=== PATIENT | female | born 1955 | race African-American/Black ===

== ENCOUNTER 2017-06-22 00:05 | Emergency (ER) | payer MEDICARE, BC, OTHER ==
--- NOTE | 2017-06-22 00:27 | ER Document Report ---
ED General <AMY JONES - Last Filed: 06/22/17 14:05> - General TRAVEL OUTSIDE OF THE [place] IN LAST 30 DAYS: No <VINCENT RILEY - Last Filed: 06/29/17 04:11> - General Chief Complaint: Bloody Stools Stated Complaint: FALL Time Seen by Provider: 06/22/17 00:12 Notes: Patient is a 62-year-old female with past medical history of a recent CVA with residual left-sided deficits, hypertension, hyperlipidemia, obesity, a recent right knee replacement who presents after having blood in her stool. The patient reports that she had been constipated secondary to taking pain medications and when she had a bowel movement tonight she had a large amount of blood with the bowel movement. Apparently the entire toilet bowl was full of blood. She denies any history of similar events in the past. She notes she is continued to have some bleeding from her rectum since that time. She is currently taking rivaroxaban. She has not spoken to her primary doctor regarding today's concerns. She denies any focal abdominal pain, syncope, chest pain or shortness of breath. Nothing improves or worsens her symptoms. She denies any hematemesis or melena. (VINCENT RILEY) - Related Data Allergies/Adverse Reactions: Penicillins Allergy (Intermediate, Verified 10/13/15 12:26) Past Medical History - General Information source: Patient - Social History Smoking Status: Never Smoker Frequency of alcohol use: None Drug Abuse: None Lives with: Spouse/Significant other Family History: Reviewed & Not Pertinent - Past Medical History Cardiac Medical History: Reports: Hx Hypertension Denies: Hx Coronary Artery Disease, Hx Heart Attack Pulmonary Medical History: Denies: Hx Asthma, Hx Bronchitis, Hx COPD, Hx Pneumonia Neurological Medical History: Denies: Hx Cerebrovascular Accident, Hx Seizures Musculoskeltal Medical History: Reports Hx Arthritis Past Surgical History: Reports: Hx Breast Surgery - breast reduction, Hx Cholecystectomy, Hx Hysterectomy, Hx Orthopedic Surgery - back, right knee, Hx Tonsillectomy. Denies: Hx Pacemaker - Immunizations Hx Diphtheria, Pertussis, Tetanus Vaccination: No Hx Pneumococcal Vaccination: 07/03/09 <VINCENT RILEY - Last Filed: 06/29/17 04:11> Review of Systems <AMY JONES - Last Filed: 06/22/17 14:05> <VINCENT RILEY - Last Filed: 06/29/17 04:11> - Review of Systems Notes: Constitutional: Negative for fever. HENT: Negative for sore throat. Eyes: Negative for visual changes. Cardiovascular: Negative for chest pain. Respiratory: Negative for shortness of breath. Gastrointestinal: Positive for hematochezia Genitourinary: Negative for dysuria. Musculoskeletal: Negative for back pain. Skin: Negative for rash. Neurological: Negative for headaches, weakness or numbness. 10 point ROS negative except as marked above and in HPI. (VINCENT RILEY) Physical Exam <AMY JONES - Last Filed: 06/22/17 14:05> - Vital signs Interpretation: Normal <VINCENT RILEY - Last Filed: 06/29/17 04:11> - Vital signs Vitals: BP 122/61 06/22/17 00:21 Notes: PHYSICAL EXAMINATION: GENERAL: Well-appearing, well-nourished and in no acute distress. HEAD: Atraumatic, normocephalic. EYES: Pupils equal round and reactive to light, extraocular movements intact, sclera anicteric, conjunctiva are normal. ENT: nares patent, oropharynx clear without exudates. Moist mucous membranes. NECK: Normal range of motion, supple without lymphadenopathy LUNGS: Breath sounds clear to auscultation bilaterally and equal. No wheezes rales or rhonchi. HEART: Regular rate and rhythm without murmurs ABDOMEN: Soft, nontender, normoactive bowel sounds. No guarding, no rebound. No masses appreciated. Rectal exam: There is a moderate to large quantity of bright red blood. No stool. No evidence of hemorrhoids on external inspection or on palpation on digital rectal examination. EXTREMITIES: Normal range of motion, no pitting or edema. No cyanosis. NEUROLOGICAL: No focal neurological deficits. Moves all extremities spontaneously and on command. PSYCH: Normal mood, normal affect. SKIN: Warm, Dry, normal turgor, no rashes or lesions noted. (VINCENT RILEY) Course - Laboratory Result Diagrams: 06/22/17 09:49 06/22/17 00:40 <AMY JONES - Last Filed: 06/22/17 14:05> - Laboratory Result Diagrams: 06/22/17 17:02 06/22/17 00:40 <VINCENT RILEY - Last Filed: 06/29/17 04:11> - Re-evaluation Re-evalutation: 06/22/17 14:06 Patient coming in for evaluation of GI bleed. Patient repeat CBC that showed lowering of her hemoglobin from 12 to approximately 9. Patient's vital signs otherwise has remained stable. We are performed earlier this morning by [facility] more likely patient would not have a bed Are in the next 24 hours for the patient. This patient is decrease in hemoglobin concerned for worsening GI bleed I did reach out to [facility] which is also full however did place the patient on the list and I did contact [facility] who did have a spot for the patient at [facility]. Patient did receive a bed assignment at [place] And also a bed assignment at [facility] at the same time. We did discuss with the patient patient is requesting to go to [facility]. I did call and cancel All the transfers from [facility] and [facility] (AMY JONES) 06/22/17 00:23 Patient presents with bright red blood per rectum after having a bowel movement just prior to to arrival. She is anticoagulated on rivaroxaban. She is hemodynamically stable. Rectal examination does show bright red blood in the rectum that covered the entirety my finger. Although the patient's bright red blood in the rectum could be secondary to a firm bowel movement in the setting of taking narcotic pain medications for recent right knee replacement, there is no way to know this for certain and the quantity of blood on digital rectal examination is unusually pronounced for the etiology. Will obtain basic labs and request transfer for a GI consultation as we do not have GI coverage 06/22/17 03:20 I have contacted the lab and have been able to receive the hemoglobin result which is 12.1 hematocrit 37. Patient remains hemodynamically within normal limits without significant tachycardia or hypotension. She continues to have a small amount of bright red bleeding from the rectum but no large volume bloody bowel movements. I have spoken to Dr. Foy at [facility] who has accepted the patient. 06/22/17 03:46 The patient has a temperature of 100.2 which remains below a true fever but did cause a reassessment of additional possible symptoms. Patient denies any localizing infectious symptoms although reassessment of her right knee where she had the arthroplasty shows signs worrisome for a possible cellulitis. Will obtain blood cultures and will initiate IV ceftriaxone as this appears to be an overlying cellulitis. (VINCENT RILEY) - Vital Signs Vital signs: Temp Pulse Resp BP Pulse Ox 100.2 F 19 96/56 L 98 06/22/17 09:19 06/22/17 18:02 06/22/17 18:02 06/22/17 18:02 - Laboratory Laboratory results interpreted by me: 06/22/17 06/22/17 06/22/17 00:40 01:30 09:49 Hgb 9.6 L D Manual Hct 29.0 L PT 28.0 H APTT 45.9 H Sodium 147.3 H Glucose 164 H 06/22/17 17:02 Hgb 10.3 L Manual Hct 30.0 L PT APTT Sodium Glucose Discharge <AMY JONES - Last Filed: 06/22/17 14:05> <VINCENT RILEY - Last Filed: 06/29/17 04:11> - Discharge Clinical Impression: Lower GI bleed, Acute blood loss anemia Condition: Fair Disposition: [facility]
[2017-06-22 01:08] LABS: ALANINE AMINOTRANSFERASE 32 U/L (9-52); ALBUMIN 4.3 g/dL (3.5-5.0); ALKALINE PHOSPHATASE 97 U/L (38-126); ANION GAP 14 (5-19); ASPARTATE AMINO TRANSFERASE 28 U/L (14-36); BILIRUBIN,DIRECT 0.2 mg/dL (0.0-0.4); BILIRUBIN,TOTAL 0.4 mg/dL (0.2-1.3); BLOOD UREA NITROGEN 10 mg/dL (7-20); CALCIUM 9.7 mg/dL (8.4-10.2); CARBON DIOXIDE 26 mmol/L (22-30); CHLORIDE 107 mmol/L (98-107); GLUCOSE 164 mg/dL (75-110); POTASSIUM 3.8 mmol/L (3.6-5.0); SODIUM 147.3 mmol/L (137-145); TOTAL PROTEIN 7.9 g/dL (6.3-8.2)
[2017-06-22 01:54] LABS: INTERNATIONAL RATION (INR) 2.47
[2017-06-22 01:55] LABS: PARTIAL THROMBOPLASTIN TIME 45.9 SEC (23.5-35.8)
[2017-06-22 03:05] LABS: HEMOGLOBIN 12.1 g/dL (12.0-15.5)
[2017-06-22] MEDS ORDERED: CEFTRIAXONE 1 GM/D5W RTU 1 GM/50 ML RTUPB IV ONE (03:46)
[2017-06-22] MEDS ORDERED: NORMAL SALINE 1000 ML 1,000 ML IV ONE (09:39)
[2017-06-22 10:33] LABS: PLATELET COUNT 213 10^3/uL (150-450); WHITE BLOOD COUNT 5.3 10^3/uL (4.0-10.5)
[2017-06-22 10:55] LABS: HEMOGLOBIN 9.6 g/dL (12.0-15.5)
[2017-06-22] MEDS ORDERED: PANTOPRAZOLE SODIUM 40 MG VIAL IV ONE (11:18)
[2017-06-22] MEDS ORDERED: PANTOPRAZOLE SODIUM 40 MG VIAL IV SCH (18:00)
[2017-06-22 18:07] LABS: HEMOGLOBIN 10.3 g/dL (12.0-15.5)
[2017-06-22 18:11] LABS: PLATELET COUNT 217 10^3/uL (150-450)
[2017-06-22 18:14] LABS: WHITE BLOOD COUNT 4.5 10^3/uL (4.0-10.5)
[2017-06-22 18:30] VITALS: BP 96/56
== END 2017-06-22 18:55 | disposition short-term general hospital (02) ==
LOC: ER 00:05
DX: K92.2 Gastrointestinal hemorrhage, unspecified (principal); D62 Acute posthemorrhagic anemia; I10 Essential (primary) hypertension; I69.30 Unspecified sequelae of cerebral infarction; Z79.02 Long term (current) use of antithrombotics/antiplatelets; Z96.651 Presence of right artificial knee joint; Z88.0 Allergy status to penicillin
CPT/HCPCS: 99285; 96361; 96375; 96365; 86900; 86901; 36415; 87040; 86850; 85027; 85610; 85730; 82272; 87077; 80053; 87186; C9113; J7030; J0696; S0164